=== PATIENT | male | born 1950 | race Caucasian/White ===

== ENCOUNTER 2019-05-08 10:08 | Inpatient (IN) | payer MEDICARE ==
[~2019-05-08] VITALS: Ht 172.7 cm; Wt 73.0 kg
[~2019-05-08 10:08] MED LIST: ALLO300T PO; AMIT100T PO; BENZ100C PO; CHOL10003 PO; CYAN25009 PO; FERR324T5 PO; FLUT1BLS3 IH; LORA-247 PO; LORA-445 PO; LORA-702 PO; LOSA25TA25 PO; MULT-516 PO; OXYC-307 PO; OXYGEN; POTA20TA89 PO
[2019-05-08 11:45] VITALS: BP 146/72
[2019-05-08] MEDS ORDERED: LACTATED RINGERS 1,000 ML IV SCH (11:56)
[2019-05-08] MEDS ORDERED: DIAZEPAM 5 MG TABLET PO ONE (12:00)
[2019-05-08] MEDS ORDERED: ACETAMINOPHEN 500 MG TABLET PO ONE (12:00)
[2019-05-08] MEDS ORDERED: THROMBIN 5,000 UNIT VIAL TP ONE (13:39)
[2019-05-08] MEDS ORDERED: BACITRACIN 50,000 UNIT ONE (13:39)
[2019-05-08] MEDS ORDERED: BUPIVACAINE/PF-EPI 0.5% 1:200K ONE (13:39)
[2019-05-08] MEDS ORDERED: NEOSPORIN OINT. PKT 1 PACKET ONE (13:39)
[2019-05-08] MEDS ORDERED: METHYLENE BLUE 10 MG/ML 10ML ONE (13:39)
[2019-05-08] MEDS ORDERED: FENTANYL PF 250 MCG/5ML ONE ×2 (15:21→15:59)
[2019-05-08] MEDS ORDERED: MIDAZOLAM 1 MG/ML, 2ML ONE (15:21)
[2019-05-08] MEDS ORDERED: EPHEDRINE 50 MG/ML, 1ML ONE (15:29)
[2019-05-08] MEDS ORDERED: hydrALAzine 20 MG/ML, 1ML IV PRN (16:30)
[2019-05-08] MEDS ORDERED: OXYcodone 5 MG/5 ML ORAL.SOL UDC PO PRN (16:30)
[2019-05-08] MEDS ORDERED: PROMETHAZINE 25 MG/ML, 1ML IV PRN (16:30)
[2019-05-08] MEDS ORDERED: LORazepam 2 MG/ML, 1ML IVPush PRN (16:30)
[2019-05-08] MEDS ORDERED: METOPROLOL 1 MG/ML, 5ML IV PRN (16:30)
[2019-05-08] MEDS ORDERED: ALBUTEROL/IPRATROPIUM 2.5MG/0.5MG, 3 ML NPPB PRN (16:30)
[2019-05-08] MEDS ORDERED: METHOCARBAMOL 1000MG/10 ML IV PRN ×2 (16:30)
[2019-05-08] MEDS ORDERED: PROMETHAZINE 25 MG SUPP PR PRN (16:30)
[2019-05-08] MEDS ORDERED: ONDANSETRON ODT 8 MG PO PRN (16:30)
[2019-05-08] MEDS ORDERED: ONDANSETRON 2MG/ML, 2ML IV PRN ×2 (16:30→20:30)
[2019-05-08] MEDS ORDERED: MEPERIDINE/PF 25MG/ML,1ML IVPush PRN (16:30)
[2019-05-08] MEDS ORDERED: LABETALOL 5MG/ML, 20ML IV PRN ×2 (16:30→20:30)
[2019-05-08] MEDS ORDERED: PROPOFOL 100 ML ONE (16:40)
[2019-05-08] MEDS ORDERED: NEOSTIGMINE 1 MG/ML, 10ML ONE (17:00)
[2019-05-08] MEDS ORDERED: CEFAZOLIN 1,000 MG ONE (17:00)
[2019-05-08] MEDS ORDERED: GLYCOPYRROLATE 0.2MG/1ML, 5ML ONE (17:00)
[2019-05-08] MEDS ORDERED: DEXAMETHASONE 4 MG/ML, 1ML ONE (17:00)
[2019-05-08] MEDS ORDERED: ROCURONIUM 10MG/ML,5ML ONE (17:00)
[2019-05-08] MEDS ORDERED: ONDANSETRON 2MG/ML, 2ML ONE (17:00)
[2019-05-08] MEDS ORDERED: PROPOFOL 10 MG/ML, 20ML ONE (17:00)
[2019-05-08] MEDS ORDERED: SUCCINYLCHOLINE 20 MG/ML, 10ML ONE (17:00)
[2019-05-08] MEDS ORDERED: FENTANYL PF 100 MCG/2ML ONE ×2 (17:32→18:07)
[2019-05-08] MEDS ORDERED: METHOCARBAMOL 1,000 MG in DEXTROSE 5% 100 ML IV PRN (18:00)
[2019-05-08] MEDS: FENTANYL PF 100 MCG/2ML IV PRN ×2 (18:05→18:12)
[2019-05-08] MEDS: DIAZEPAM 5 MG/ML, 2ML IVPush PRN ×3 (18:06→19:12)
[2019-05-08] MEDS ORDERED: DIAZEPAM 5 MG/ML, 2ML ONE (18:07)
[2019-05-08] MEDS ORDERED: OXYcodone 5 MG/5 ML ORAL.SOL UDC ONE (18:07)
[2019-05-08] MEDS ORDERED: HYDROmorphone 1 MG/ML, 1ML INJ ONE (18:07)
[2019-05-08] MEDS: HYDROmorphone 1 MG/ML, 1ML INJ IVPush PRN ×6 (18:18→19:27)
[2019-05-08] MEDS ORDERED: HYDROmorphone 2 MG/ML, 1ML ONE (18:36)
[2019-05-08] MEDS: HYDROmorphone PCA 30 MG/30 ML IV PRN (18:50)
[2019-05-08] MEDS ORDERED: LORazepam 2 MG/ML, 1ML ONE (18:56)
[2019-05-08] MEDS ORDERED: PHARMACY MAY ADJ FOR RENAL FX MC PRN (20:00)
[2019-05-08] MEDS: LABETALOL 5MG/ML, 20ML IV SCH (20:30)
[2019-05-08] MEDS ORDERED: LORazepam 1MG TABLET PO PRN (20:30)
[2019-05-08] MEDS ORDERED: DIPHENHYDRAMINE 50 MG/ML, 1ML IM PRN (20:30)
[2019-05-08] MEDS ORDERED: DIPHENHYDRAMINE 50 MG/ML, 1ML IVPush PRN (20:30)
[2019-05-08] MEDS ORDERED: BISACODYL 10 MG SUPP PR PRN (20:30)
[2019-05-08] MEDS ORDERED: DIPHENHYDRAMINE 25 MG CAPSULE PO PRN (20:30)
[2019-05-08] MEDS ORDERED: METHOCARBAMOL 750 MG TABLET PO PRN (20:30)
[2019-05-08] MEDS ORDERED: MAGNESIUM HYDROXIDE 8%, 30ML UDC PO PRN (20:30)
[2019-05-09] MEDS: NS + 20MEQ KCL 1,000 ML IV SCH ×3 (01:07→23:10)
[2019-05-09] MEDS: CEFAZOLIN PMX 1GM/50ML 50 ML IVPB SCH ×2 (01:23→10:03)
[2019-05-09] MEDS ORDERED: METHOCARBAMOL 750 MG in DEXTROSE 5% 100 ML IV SCH (02:00)
[2019-05-09 04:05] VITALS: BP 130/78
[2019-05-09] MEDS: LABETALOL 5MG/ML, 20ML IV SCH ×3 (04:30→20:30)
[2019-05-09 05:08] LABS: BASOPHILS # (AUTO) 0.03 x10^3/uL (0-0.1); BASOPHILS % (AUTO) 0 % (0-1); EOSINOPHILS # (AUTO) 0.03 x10^3/uL (0-0.4); EOSINOPHILS % (AUTO) 0 % (1-7); LYMPHOCYTES # (AUTO) 0.37 x10^3/uL (1-3.4); LYMPHOCYTES % (AUTO) 4 % (22-44); MD NO; MEAN CORPUSCULAR HEMOGLOBIN 33.6 pg (27.5-34.5); MEAN CORPUSCULAR HGB CONC 32.6 g/dL (33.2-36.2); MEAN CORPUSCULAR VOLUME 103.1 fL (81-97); MEAN PLATELET VOLUME 7.1 fL (7.4-10.4); MONOCYTES # (AUTO) 0.46 x10^3/uL (0.2-0.8); MONOCYTES % (AUTO) 6 % (2-9); NEUTROPHILS # (AUTO) 7.56 x10^3/uL (1.8-6.8); NEUTROPHILS % (AUTO) 89 % (42-75); PLATELET COUNT 339 x10^3/uL (130-400); RED BLOOD COUNT 2.97 x10^6/uL (4.38-5.82); RED CELL DISTRIBUTION WIDTH 14.6 % (9.4-14.8)
[2019-05-09 05:17] LABS: ALBUMIN 3.3 g/dL (3.4-5.0); ANION GAP 7 mmol/L (5-15); CALCIUM 8.1 mg/dL (8.5-10.1); CHLORIDE 99 mmol/L (98-107)
[2019-05-09 05:18] LABS: CREATININE 0.62 mg/dL (0.7-1.3)
[2019-05-09] MEDS: HYDROmorphone PCA 30 MG/30 ML IV PRN (06:29)
[2019-05-09 06:59] VITALS: BP 139/71
[2019-05-09] MEDS: LORATADINE 10 MG TABLET PO SCH (09:00)
[2019-05-09] MEDS: SENNA/DOCUSATE TABLET PO SCH (09:00)
[2019-05-09] MEDS: CHOLECALCIFEROL 5,000u TAB PO SCH (09:00)
[2019-05-09] MEDS ORDERED: LOSARTAN 25MG TABLET PO SCH (09:00)
[2019-05-09] MEDS: TEMPLATE NON-FORMULARY MED. (Fluticasone/Umeclidin/Vilanter (Trelegy Ellipta 100-62.5-25 HOMEINH SCH (09:00)
[2019-05-09] MEDS ORDERED: METOCLOPRAMIDE 5 MG/ML, 2ML IV PRN (10:30)
[2019-05-09] MEDS: MAGNESIUM HYDROXIDE 8%, 30ML UDC PO SCH (11:00)
[2019-05-09] MEDS ORDERED: DIAZEPAM 2 MG TABLET PO PRN (11:00)
[2019-05-09] MEDS ORDERED: DIAZEPAM 5 MG/ML, 2ML IVPush PRN (11:00)
[2019-05-09] MEDS: CYCLOBENZAPRINE 10 MG TABLET PO PRN ×2 (12:28→22:15)
[2019-05-09] MEDS: ACETAMINOPHEN 500 MG TABLET PO SCH ×2 (13:54→22:01)
[2019-05-09] MEDS: OXYcodone IR 5MG TABLET PO PRN ×4 (13:54→22:15)
[2019-05-09 14:36] VITALS: BP 134/67
[2019-05-09 20:24] VITALS: BP 136/68
[2019-05-09] MEDS ORDERED: AMITRIPTYLINE 50 MG TABLET PO SCH (21:00)
[2019-05-09] MEDS: ALLOPURINOL 300 MG TABLET PO SCH (22:01)
[2019-05-10 02:01] VITALS: BP 146/78
[2019-05-10] MEDS: ACETAMINOPHEN 500 MG TABLET PO SCH ×3 (04:09→17:08)
[2019-05-10] MEDS: OXYcodone IR 5MG TABLET PO PRN ×4 (04:15→17:08)
[2019-05-10] MEDS: LABETALOL 5MG/ML, 20ML IV SCH ×2 (04:21→09:45)
[2019-05-10 04:52] LABS: BASOPHILS # (AUTO) 0.01 x10^3/uL (0-0.1); BASOPHILS % (AUTO) 0 % (0-1); EOSINOPHILS # (AUTO) 0.31 x10^3/uL (0-0.4); EOSINOPHILS % (AUTO) 5 % (1-7); LYMPHOCYTES # (AUTO) 1.18 x10^3/uL (1-3.4); LYMPHOCYTES % (AUTO) 20 % (22-44); MD NO; MEAN CORPUSCULAR HEMOGLOBIN 33.9 pg (27.5-34.5); MEAN CORPUSCULAR HGB CONC 32.6 g/dL (33.2-36.2); MEAN PLATELET VOLUME 6.7 fL (7.4-10.4); MONOCYTES # (AUTO) 0.64 x10^3/uL (0.2-0.8); MONOCYTES % (AUTO) 11 % (2-9); NEUTROPHILS # (AUTO) 3.71 x10^3/uL (1.8-6.8); NEUTROPHILS % (AUTO) 64 % (42-75); PLATELET COUNT 283 x10^3/uL (130-400); RED BLOOD COUNT 2.76 x10^6/uL (4.38-5.82); RED CELL DISTRIBUTION WIDTH 14.5 % (9.4-14.8)
[2019-05-10 04:59] LABS: ALBUMIN 3.2 g/dL (3.4-5.0); ANION GAP 5 mmol/L (5-15); CALCIUM 8.3 mg/dL (8.5-10.1); CHLORIDE 98 mmol/L (98-107); CREATININE 0.61 mg/dL (0.7-1.3)
[2019-05-10 06:59] VITALS: BP 132/68
[2019-05-10] MEDS: TEMPLATE NON-FORMULARY MED. (Fluticasone/Umeclidin/Vilanter (Trelegy Ellipta 100-62.5-25 HOMEINH SCH (08:13)
[2019-05-10] MEDS: SENNA/DOCUSATE TABLET PO SCH (08:13)
[2019-05-10] MEDS: MAGNESIUM HYDROXIDE 8%, 30ML UDC PO SCH (08:13)
[2019-05-10] MEDS: LORATADINE 10 MG TABLET PO SCH (08:13)
[2019-05-10] MEDS: ALLOPURINOL 300 MG TABLET PO SCH (08:13)
[2019-05-10] MEDS: CHOLECALCIFEROL 5,000u TAB PO SCH (08:13)
[2019-05-10] MEDS: NS + 20MEQ KCL 1,000 ML IV SCH (08:15)
[2019-05-10] MEDS: CYCLOBENZAPRINE 10 MG TABLET PO PRN ×2 (09:45→18:00)
[2019-05-10 14:17] VITALS: BP 133/71
[2019-05-10] MEDS ORDERED: OXYC5CAP2 PO (16:45)
[2019-05-10] MEDS ORDERED: CYCL-259 PO (16:46)
[2019-05-10 17:10] VITALS: BP 156/77
[2019-05-11] MEDS ORDERED: METHOCARBAMOL 750 MG TABLET PO SCH (06:00)
== END 2019-05-10 18:40 | disposition home or self-care (01) | DRG 472 ==
LOC: ORIP 11:09 → 4NE 19:50
PROVIDERS: ADMIT Neurological Surgery; ATTEND Neurological Surgery
PROC: 01N10ZZ Release Cervical Nerve, Open Approach (ICD-10-PCS; 2019-05-08)
PROC: 4A11X4G Monitoring of Peripheral Nervous Electrical Activity, Intraoperative, External Approach (ICD-10-PCS; 2019-05-08)
PROC: 0RG2071 Fusion of 2 or more Cervical Vertebral Joints with Autologous Tissue Substitute, Posterior Approach, Posterior Column, Open Approach (ICD-10-PCS; principal; 2019-05-08 14:00)
DX: M48.02 Spinal stenosis, cervical region (principal); G99.2 Myelopathy in diseases classified elsewhere; G89.4 Chronic pain syndrome; D64.9 Anemia, unspecified; E11.9 Type 2 diabetes mellitus without complications; R09.02 Hypoxemia; I10 Essential (primary) hypertension; J45.909 Unspecified asthma, uncomplicated; M54.12 Radiculopathy, cervical region
CPT/HCPCS: 36415; 72040; 76000; 80048; 82040; 85025; 86850; 86900; 95938; 95941; C1713; G0378; J0690; J1100; J1170; J2250; J2405; J2704; J2710; J3010; J3360; J3480; C1762; C9352; J0330; J2060; J2800; J7120; Q9968